=== PATIENT | male | born 1970 | race Caucasian/White ===

== ENCOUNTER 2016-06-20 10:23 | Emergency (ER) | payer BC ==
--- NOTE | 2016-06-20 10:58 | UC ---
Back Pain HPI - HPI Summary HPI Summary: 45 years old male presents complaining of left sided low back pain which radiates to the right lateral side. Located near the costovertebral angle. Pain increased with positional changes and use of the left arm. Intermittent pain is described as dull ache, 5/10 pain. Denies bowel or urinary changes, chest tightness/discomfort, or SOB. - History of Current Complaint Stated Complaint: LOWER BACK PAIN Time Seen by Provider: 06/20/16 10:47 Hx Obtained From: Patient Onset/Duration: Sudden Onset Timing: Intermittent Severity Initially: Moderate Severity Currently: Mild Pain Intensity: 5 Pain Scale Used: 0-10 Numeric Back Pain: Radiates To - Across the back to the rifght lateral side. Character: Dull, Aching Aggravating: Movement, Lifting, Bending, Cough Alleviating: Rest, Position Associated Signs And Symptoms: Positive: Negative. Negative: Swelling, Weakness , Numbness, Tingling, Abdominal Pain, Flank Pain, Bladder Incontinence, Bowel Incontinence Related History: Previous Back Injury - Risk Factors AAA Risk Factors: Primary Relative/AAA, Smoking TAD Risk Factors: Smoking Cauda Equina Risk Factors: Negative Epidural Abscess Risk Factors: Negative - Allergies/Home Medications Allergies/Adverse Reactions: Allergies Allergy/AdvReac Type Severity Reaction Status Date / Time No Known Allergies Allergy Verified 04/15/16 14:36 PMH/Surg Hx/FS Hx/Imm Hx Previously Healthy: Yes Endocrine History Of: Denies: Diabetes, Thyroid Disease, Hyperthyroidism, Hypothyroidism, Dyslipidemia Cardiovascular History Of: Denies: Cardiac Disorders, Hypertension, Pacemaker/ICD, Myocardial Infarction , Congestive Heart Failure, Atrial Fibrillation, Deep Vein Thrombosis, Bleeding Disorders Respiratory History Of: Denies: COPD, Asthma, Bronchitis, Pneumonia, Pulmonary Embolism GI/ History Of: Denies: Gastroesophageal Reflux, Ulcer, Gastrointestinal Bleed, Gall Bladder Disease, Kidney Stones, Diverticulitis, Renal Disease, Urosepsis Neurological History Of: Denies: TIA, CVA, Dementia, Seizures, Migraine Psychological History Of: Denies: Anxiety, Depression, Bipolar Disorder, Schizophrenia, Post Traumatic Stress Disorder - Surgical History Surgical History: Yes Surgery Procedure, Year, and Place: [facility] 1984 - Family History Known Family History: Positive: Hypertension, Diabetes, Other - Oldest brother CAD; AAA - Social History Occupation: Employed Full-time - [employer] Part-time [employer] Lives: With Family Alcohol Use: Occasionally Substance Use Type: None Smoking Status (MU): Current Every Day Smoker Type: Cigarettes Amount Used/How Often: 1 ppd Length of Time of Smoking/Using Tobacco: 25 years Have You Smoked in the Last Year: Yes Cessation Counseling: Patient Advised to Stop - Immunization History Most Recent Influenza Vaccination: Unk Most Recent Tetanus Shot: Unk Review of Systems Constitutional: Negative Skin: Negative Eyes: Negative ENT: Negative Respiratory: Negative Cardiovascular: Negative Gastrointestinal: Negative Genitourinary: Negative Motor: Decreased ROM Neurovascular: Negative Musculoskeletal: Decreased ROM Neurological: Negative Psychological: Negative All Other Systems Reviewed And Are Negative: Yes Physical Exam Triage Information Reviewed: Yes Appearance: No Pain Distress Vital Signs Reviewed: Yes Eye Exam: Normal Eyes: Positive: Conjunctiva Clear ENT Exam: Normal ENT: Positive: Normal ENT inspection Dental Exam: Normal Neck exam: Normal Neck: Positive: Supple, Nontender, No Lymphadenopathy Respiratory Exam: Normal Respiratory: Positive: Chest non-tender, Lungs clear, Normal breath sounds, No respiratory distress, No accessory muscle use Cardiovascular Exam: Normal Cardiovascular: Positive: RRR, No Murmur, Pulses Normal Abdominal Exam: Normal Abdomen Description: Positive: Nontender, No Organomegaly, Distended - obese, Other: - No palpable thrill or bruit auscultated. Negative: Peritoneal Signs, Pulsatile Mass Bowel Sounds: Positive: Present Musculoskeletal Exam: Normal Musculoskeletal: Positive: ROM Limited @ - ROM in the spine limited r/t discomfort Neurological Exam: Normal Neurological: Positive: Alert, Muscle Tone Normal Psychological Exam: Normal Skin Exam: Normal Back Pain Course/Dx - Differential Dx/Diagnosis Provider Diagnoses: Acute low back pain Discharge - Discharge Plan Condition: Stable Disposition: HOME Prescriptions: Cyclobenzaprine TAB* [Flexeril TAB*] 10 mg PO BID #20 tab Naproxen [Naproxen 500 MG TABS] 500 mg PO BID #20 tab Patient Education Materials: Acute Low Back Pain (ED) Referrals: No Primary Care Phys,NOPCP [Primary Care Provider] - If Needed Additional Instructions: As we discussed, seek medical care if experiencing pain radiating down the legs , bowel incontinence, severe constant back pain, Shortness of breath, or chest tightness/discomfort.
[2016-06-20 11:07] VITALS: BP 124/85
== END 2016-06-20 11:57 | disposition home or self-care (01) ==
LOC: UCCORT 10:23
DX: M54.5 Low back pain (principal); F17.210 Nicotine dependence, cigarettes, uncomplicated
CPT/HCPCS: 99212; G0463

== ENCOUNTER 2017-02-28 18:33 | Emergency (ER) | payer BC ==
[2017-02-28 18:50] VITALS: BP 124/77
[2017-02-28] MEDS ORDERED: Lidocaine 2% PF * 5 ML VIAL IV ONE (19:21)
--- NOTE | 2017-02-28 19:51 | UC ---
Skin Complaint HPI - HPI Summary HPI Summary: cyst mid back x 2 months has been getting larger, swollen , tender to touch no fever, - History of Current Complaint Chief Complaint: UCSkin Time Seen by Provider: 02/28/17 19:18 Stated Complaint: SKIN COMPLAINT (BACK) Hx Obtained From: Patient Onset/Duration: Gradual Onset, Lasting Weeks - 8, Still Present, Worse Since - past few days Timing: Constant Onset Severity: Mild Current Severity: Moderate Location: Discrete - mid back Character: Swelling, Pain, Redness, Raised, Painful Aggravating: Touch Alleviating: Nothing Associated Signs & Symptoms: Positive: Negative - Allergy/Home Medications Allergies/Adverse Reactions: Allergies Allergy/AdvReac Type Severity Reaction Status Date / Time No Known Allergies Allergy Verified 02/28/17 18:50 Review of Systems Constitutional: Negative Eyes: Negative ENT: Negative Respiratory: Negative Is Patient Immunocompromised?: No All Other Systems Reviewed And Are Negative: Yes PMH/Surg Hx/FS Hx/Imm Hx - Additional Past Medical History Additional PMH: chronic back pain s/p back surgery - Surgical History Surgical History: Yes Surgery Procedure, Year, and Place: [facility] 1984 - Family History Known Family History: Positive: Hypertension, Diabetes, Other - Oldest brother CAD; AAA - Social History Alcohol Use: Rare Substance Use Type: None Smoking Status (MU): Current Every Day Smoker Type: Cigarettes Amount Used/How Often: 1 ppd Length of Time of Smoking/Using Tobacco: 25 years Have You Smoked in the Last Year: Yes - Immunization History Most Recent Influenza Vaccination: no Most Recent Tetanus Shot: Unk Physical Exam Triage Information Reviewed: Yes Appearance: Well-Appearing, No Pain Distress, Obese Vital Signs: Initial Vital Signs Temp 98.3 F 02/28/17 18:45 Pulse 73 02/28/17 18:45 Resp 15 02/28/17 18:45 BP 124/77 02/28/17 18:45 Pulse Ox 98 02/28/17 18:45 Vital Signs Reviewed: Yes Eyes: Positive: Conjunctiva Clear ENT: Positive: Normal ENT inspection, Hearing grossly normal Neck: Positive: Supple, Nontender, No Lymphadenopathy Respiratory: Positive: Chest non-tender, Lungs clear, Normal breath sounds Cardiovascular: Positive: RRR, No Murmur, Pulses Normal Musculoskeletal Exam: Normal Skin: Positive: Other - cyst mid back 5 cm in diameter Course/Dx - Diagnoses Provider Diagnoses: cyst mid back Procedures - Incision and Drainage Site: mid back Anesthesia: Topical - 2 % lidocane plane x 5 cc Instrument(s): Scalpel - #11 , Needle - 25 g Discharge - Discharge Plan Condition: Stable Disposition: HOME Prescriptions: Cephalexin CAP* [Keflex CAP*] 500 mg PO TID #30 cap Patient Education Materials: Epidermal Inclusion Cysts (ED) Referrals: No Primary Care Phys,NOPCP [Primary Care Provider] - Additional Instructions: follow up with your pcp in 5 days
== END 2017-02-28 19:58 | disposition home or self-care (01) ==
LOC: UCCORT 18:33
DX: L72.3 Sebaceous cyst (principal); E66.9 Obesity, unspecified; F17.210 Nicotine dependence, cigarettes, uncomplicated
CPT/HCPCS: 10060

== ENCOUNTER 2017-03-22 14:16 | Emergency (ER) | payer BC ==
[2017-03-22 15:41] VITALS: BP 125/75
[2017-03-22] MEDS ORDERED: Albuterol/Ipratropium NEB.SOL* Albuterol 2.5 MG/Ipratropium 0.5 MG 3 ML INH ONE (16:16)
--- NOTE | 2017-03-22 16:24 | UC ---
Respiratory Complaint HPI - HPI Summary HPI Summary: 46 male presents to [facility] with complaints of head and chest congestion that has been ongoing for the past week and worsening. Patient states he also did feel feverish this morning. Denies known fever. Admits to smoking cigarettes however denies COPD, asthma and any cardiac medical problems. No PMHx and does not take medications. Does admit to sometimes feeling SOB since symptoms have been worsening. Admits to nasal congestion. Cough is sometimes productive and white in color. Denies blood. Has tried taking over the counter cold/flu medication without relief. Admits to headache at times. No nausea, vomiting. No other complaints at this time. - History of Current Complaint Chief Complaint: UCRespiratory Stated Complaint: HEAD/CHEST CONGESTION Time Seen by Provider: 03/22/17 16:04 Hx Obtained From: Patient Onset/Duration: Sudden Onset, Lasting Weeks - 1, Still Present, Worse Since Timing: Constant Severity Initially: Mild Severity Currently: Moderate Pain Intensity: 0 Pain Scale Used: 0-10 Numeric Character: Cough: Productive Aggravating Factors: Deep Breaths, Recumbent Position Alleviating Factors: Upright Position, Nothing Associated Signs And Symptoms: Positive: URI, Nasal Congestion, Sinus Discomfort. Negative: Hemoptysis, Dizziness, Calf Pain, Calf Swelling - Risk Factors Pulmonary Embolism Risk Factors: Negative Cardiac Risk Factors: Negative Pseudomonas Risk Factors: Negative Tuberculosis Risk Factors: Smoking - Allergies/Home Medications Allergies/Adverse Reactions: Allergies Allergy/AdvReac Type Severity Reaction Status Date / Time No Known Allergies Allergy Verified 03/22/17 15:38 PMH/Surg Hx/FS Hx/Imm Hx - Additional Past Medical History Additional PMH: No PMHx, denies HTN, DM and asthma/COPD - Surgical History Surgical History: Yes Surgery Procedure, Year, and Place: [facility] 1984 - Family History Known Family History: Positive: Hypertension, Diabetes, Other - Oldest brother CAD; AAA - Social History Alcohol Use: Rare Substance Use Type: None Smoking Status (MU): Heavy Every Day Tobacco Smoker Type: Cigarettes Amount Used/How Often: 1 PPD Length of Time of Smoking/Using Tobacco: Since Age 17 Have You Smoked in the Last Year: Yes Household Exposure Type: Cigarettes - Immunization History Most Recent Influenza Vaccination: Not the 2017/2017 Season Most Recent Tetanus Shot: Unk Review of Systems Constitutional: Fever - subjective, Fatigue Eyes: Negative ENT: Nasal Discharge, Sinus Congestion, Sinus Pain/Tenderness Respiratory: Shortness Of Breath, Cough Cardiovascular: Negative Gastrointestinal: Negative Neurological: Headache All Other Systems Reviewed And Are Negative: Yes Physical Exam Triage Information Reviewed: Yes Appearance: Well-Appearing - sounds ill, No Pain Distress, Well-Nourished Vital Signs: Initial Vital Signs Temp 97.9 F 03/22/17 15:36 Pulse 66 03/22/17 15:36 Resp 16 03/22/17 15:36 BP 125/75 03/22/17 15:36 Pulse Ox 99 03/22/17 15:36 Vital Signs Reviewed: Yes Eyes: Positive: Conjunctiva Clear ENT: Positive: Normal ENT inspection, Hearing grossly normal, Pharynx normal, Nasal congestion, TMs normal. Negative: Tonsillar swelling, Tonsillar exudate, Muffled/hoarse voice Dental: Negative: Percussion Tenderness @ Neck: Positive: Supple, Nontender, No Lymphadenopathy Respiratory: Positive: Chest non-tender, Normal breath sounds, No respiratory distress, No accessory muscle use, Rhonchi - b/l, Wheezing - diffuse, Expiration Cardiovascular: Positive: RRR, No Murmur, Pulses Normal, Brisk Capillary Refill Abdominal Exam: Normal Musculoskeletal Exam: Normal Skin Exam: Normal UC Diagnostic Evaluation - Laboratory O2 Sat by Pulse Oximetry: 99 - Radiology Xray Interpretation: Positive (See Comments) - Stigmata of obstructive lung disease. Minimal atelectasis left base, no pneumonia Radiology Interpretation Completed By: Radiologist Re-Evaluation - Re-Evaluation First Eval Re-Evaluation Time: 17:20 Change: Improved - at relief after duoneb. significant improvement of wheezing, however still noted with expiration Respiratory Course/Dx - Course Course Of Treatment: chest xray obtained due to PE findings and to rule out pneumonia, negative. duonbe while in UC had significant relief. appears to be suffering URI/bronchitis. zpack and steroid. inhaler given, no use of nebulizer at home. continue fluids and rest. recommended mucinex and flonase. follow up with pcp. aware of worsening signs and symptoms. return if worse or new. - Differential Dx/Diagnosis Differential Diagnosis/HQI/PQRI: Bronchitis, Lower Resp Infection, Other - URI Provider Diagnoses: bronchitis, URI Discharge - Discharge Plan Condition: Improved Disposition: HOME Patient Education Materials: Albuterol (By breathing), Acute Bronchitis (ED), COPD (Chronic Obstructive Pulmonary Disease) (ED) Referrals: [facility]IC[facility] REFERRAL [Outside] Additional Instructions: Use prescribed medications as directed. Recommend flonase and mucniex over the counter. Increase fluid intake, get plenty of rest. If symptoms worsen or new symptoms develop/do not improve please seek medical attention immediately. Follow up and make an appointment with PCP. Try and quit smoking, as you already are aware of course.
--- NOTE | 2017-03-22 17:02 | RAD ---
INDICATION: Cough intermittently productive, shortness of breath, fever. History of tobacco use. COMPARISON: March 07, 2012 TECHNIQUE: Dual energy PA and routine lateral views of the chest were obtained. REPORT: Elevated lung volumes and mild coarsening of interstitial markings. Mild linear subsegmental atelectasis at the LEFT lung base. No focal pulmonary lesion, pleural effusion, pneumothorax. Negative for cardiomegaly. Unremarkable central pulmonary vasculature and mediastinal contours. Spinal fixation rods. IMPRESSION: Stigmata of obstructive lung disease. Minimal subsegmental atelectasis at the LEFT lung base. No radiographic evidence for pneumonia.
== END 2017-03-22 17:32 | disposition home or self-care (01) ==
LOC: UCCORT 14:16
DX: J40 Bronchitis, not specified as acute or chronic (principal); J06.9 Acute upper respiratory infection, unspecified; F17.210 Nicotine dependence, cigarettes, uncomplicated
CPT/HCPCS: 71020; 99212; A9270-GY; G0463

== ENCOUNTER 2017-11-15 19:01 | Emergency (ER) | payer BC ==
[2017-11-15 20:00] VITALS: BP 136/81
--- NOTE | 2017-11-15 20:04 | UC ---
Eye Complaint HPI - HPI Summary HPI Summary: 46 y/o male presents presents to the urgent care c/o left eye redness w/ green drainage since yesterday. Pt reports this morning he woke upe w/ crusting green eye discharge. Pt denies nasal congestion or URI, fever, SHANKS, photophobia or eye pain, visual disturbance, SOB, chest pain, abdominal pain, N/V/D. - History of Current Complaint Chief Complaint: UCEye Stated Complaint: LEFT EYE REDNESS Time Seen by Provider: 11/15/17 20:03 Hx Obtained From: Patient Onset/Duration: Gradual Onset, Lasting Days - 1 day, Still Present, Worse Since - today Timing: Constant Severity Initially: Mild Severity Currently: Mild Pain Intensity: 0 Pain Scale Used: 0-10 Numeric Location of Injury: Conjunctiva - left w/ green eye discharge Character: Foreign Body Sensation Aggravating Factor(s): Blinking Alleviating Factor(s): Nothing Associated Signs And Symptoms: Positive: Drainage (Purulent) - green. Negative : Photophobia, Vision Impairment Bilateral, Fever, Swelling - Risk Factors Penetrating Injury Risk Factor: Negative Globe Rupture Risk Factors: Negative Acute Glaucoma Risk Factors: Negative Optic Artery Occlusion Risk Factors: Negative - Allergies/Home Medications Allergies/Adverse Reactions: Allergies Allergy/AdvReac Type Severity Reaction Status Date / Time No Known Allergies Allergy Verified 03/22/17 15:38 Home Medications: Home Medications Ibuprofen 600 mg PO Q8H 11/15/17 [History Confirmed 11/15/17] PMH/Surg Hx/FS Hx/Imm Hx Previously Healthy: Yes - Pt denies PMHX - Surgical History Surgical History: Yes Surgery Procedure, Year, and Place: [facility] 1985 [id number]. APPENDECTOMY - Family History Known Family History: Positive: Hypertension, Diabetes Family History: Oldest brother CAD; AAA - Social History Occupation: Employed Full-time Lives: With Family Alcohol Use: Rare Substance Use Type: None Smoking Status (MU): Former Smoker Type: Cigarettes Amount Used/How Often: 1 PPD Length of Time of Smoking/Using Tobacco: Since Age 17 Have You Smoked in the Last Year: Yes When Did the Patient Quit Smoking/Using Tobacco: 06/2017 Household Exposure Type: Cigarettes - Immunization History Most Recent Influenza Vaccination: Not the Season Most Recent Tetanus Shot: Unk Review of Systems Constitutional: Negative Skin: Negative Eyes: Drainage - green, Eye Redness - left ENT: Negative Respiratory: Negative Cardiovascular: Negative Gastrointestinal: Negative Genitourinary: Negative Motor: Negative Neurovascular: Negative Musculoskeletal: Negative Neurological: Negative Psychological: Negative Is Patient Immunocompromised?: No All Other Systems Reviewed And Are Negative: Yes Physical Exam - Summary Physical Exam Summary: Vital Signs Reviewed: Yes General: Well appearing, well nourished obese male in no apparent pain distress Eyes: Positive: left Conjunctiva Inflamed - Visual acuity: WNL,Visual fernandez: full to confrontation PERRLA, EOMI intact w/out limitation or complaint of pain. eyelashes clear.moderate green drainage observed. No ciliary flush. No chemosis, No photophobia. Normal fundoscopic exam; no proptosis, exophthalmos, nystagmus. ENT: Positive: Normal ENT inspection, Hearing grossly normal, Pharynx normal, Nasal congestion, Nasal drainage - clear, TMs normal - B/L external ear canal clear , TM's WNL. Negative: Tonsillar swelling, Tonsillar exudate Neck: Positive: Supple, Nontender, No Lymphadenopathy Respiratory: Positive: Chest nontender, Lungs clear, Normal breath sounds, No respiratory distress Cardiovascular: Positive: RRR, No Murmur, Pulses Normal, Brisk Capillary Refill Abdomen Description: Positive: Nontender, No Organomegaly, Soft. Negative: CVA Tenderness (R), CVA Tenderness (L) Bowel Sounds: Positive: Present Musculoskeletal: Positive: Strength Intact, ROM Intact, No Edema Neurological Exam: Normal Psychological Exam: Normal Skin Exam: Normal Triage Information Reviewed: Yes Vital Signs: Initial Vital Signs Temp 98.8 F 11/15/17 19:55 Pulse 82 11/15/17 19:55 Resp 17 11/15/17 19:55 BP 136/81 11/15/17 19:55 Pulse Ox 98 11/15/17 19:55 Eye Complaint Course/Dx - Course Course Of Treatment: 46 y/o male presents presents to the urgent care c/o left eye redness w/ green drainage since yesterday. Pt reports this morning he woke upe w/ crusting green eye discharge. Pt denies nasal congestion or URI, fever, SHANKS, photophobia or eye pain, visual disturbance, SOB, chest pain, abdominal pain , N/V/D.Hx obtained. Pt w/ acute left bacterial conjunctivitis on examination. Pt Rx Ciprofloxacin ophthalmic drops and advised if symptoms do not improve or worsen to f/u with Quality Assurance Supervisor Final Dr Mehta in 2-3 days. Advised to encourage hand washing. Pt understood and agreed. - Differential Dx/Diagnosis Differential Diagnosis/HQI/PQRI: Conjunctivitis, Keratitis, Periorbital Cellulitis, Orbital Cellulitis, Uveitis Provider Diagnoses: 1- Left acute bacterial conjunctivitis Discharge - Sign-Out/Discharge Documenting (check all that apply): Discharge/Admit/Transfer - D/C home - Discharge Plan Condition: Stable Disposition: HOME Prescriptions: Ciprofloxacin 0.3% OPTH.COLLETTE* [Cipro 0.3% Opth*] 2 drop LEFT EYE Q2H #1 btl Patient Education Materials: Conjunctivitis (ED) Forms: *Work Release Referrals: Nomi Gray MD [Primary Care Provider] - If Needed Michelle Mehta MD [Medical Doctor] - If Needed Additional Instructions: 1-Please apply ophthalmic drops as instructed and finish the full course of treatment to avoid recurrent infection. Encourage hand washing to avoid spreading 2-If you do not improve or if symptoms worsen please f/u with fruit pitter for further evaluation and treatment - Billing Disposition and Condition Condition: STABLE Disposition: Home
== END 2017-11-15 20:26 | disposition home or self-care (01) ==
LOC: UCCORT 19:01
DX: H10.32 Unspecified acute conjunctivitis, left eye (principal); B96.89 Other specified bacterial agents as the cause of diseases classified elsewhere; Z87.891 Personal history of nicotine dependence
CPT/HCPCS: 99212; G0463

== ENCOUNTER 2017-12-31 16:37 | Emergency (ER) | payer BC ==
[2017-12-31 16:51] VITALS: BP 143/84
--- NOTE | 2017-12-31 17:05 | ED ---
Abdominal Pain/Male - HPI Summary HPI Summary: 47 yr old male with the complaint of abdominal pain. Onset of pain Monday associated with diarrhea, and now has soft stools Monday and Monday with burning at the end of bowel movement. he has pain in the low abdomen. He has had associated sweats and chills. No vomiting. He has had an appendectomy. - History of Current Complaint Chief Complaint: UCGeneralIllness Stated Complaint: PERSONAL Time Seen by Provider: 12/31/17 16:52 Pain Intensity: 4 - Allergies/Home Medications Allergies/Adverse Reactions: Allergies Allergy/AdvReac Type Severity Reaction Status Date / Time No Known Allergies Allergy Verified 12/31/17 16:45 Home Medications: Home Medications NK [No Home Medications Reported] 12/31/17 [History Confirmed 12/31/17] PMH/Surg Hx/FS Hx/Imm Hx Endocrine/Hematology History: Denies: Hx Diabetes, Hx Thyroid Disease Cardiovascular History: Denies: Hx Congestive Heart Failure, Hx Deep Vein Thrombosis, Hx Hypertension , Hx Myocardial Infarction, Hx Pacemaker/ICD Respiratory History: Denies: Hx Asthma, Hx Chronic Obstructive Pulmonary Disease (COPD), Hx Pneumonia, Hx Pulmonary Embolism GI History: Denies: Hx Gall Bladder Disease, Hx Gastrointestinal Bleed, Hx Ulcer, Hx Urosepsis History: Denies: Hx Kidney Stones, Hx Renal Disease Neurological History: Denies: Hx Dementia, Hx Migraine, Hx Seizures, Hx Transient Ischemic Attacks (TIA) Psychiatric History: Denies: Hx Anxiety, Hx Depression, Hx Schizophrenia, Hx Bipolar Disorder - Surgical History Surgery Procedure, Year, and Place: [facility] 1984 [id number]. APPENDECTOMY Infectious Disease History: No Infectious Disease History: Denies: Traveled Outside the [place] in Last 30 Days - Family History Known Family History: Positive: Hypertension, Diabetes, Other - Oldest brother CAD; AAA Family History: Oldest brother CAD; AAA - Social History Alcohol Use: Rare Substance Use Type: Reports: None Smoking Status (MU): Former Smoker Type: Cigarettes Amount Used/How Often: 1 PPD Length of Time of Smoking/Using Tobacco: Since Age 17 Have You Smoked in the Last Year: Yes Review of Systems Positive: Fever, Chills Positive: Abdominal Pain, Diarrhea All Other Systems Reviewed And Are Negative: Yes Physical Exam Triage Information Reviewed: Yes Vital Signs On Initial Exam: Initial Vitals Temp Pulse Resp BP Pulse Ox 97.4 F 88 20 143/84 98 12/31/17 16:45 12/31/17 16:45 12/31/17 16:45 12/31/17 16:45 12/31/17 16:45 Vital Signs Reviewed: Yes Appearance: Positive: Well-Appearing, No Pain Distress, Obese Skin: Positive: Warm, Skin Color Reflects Adequate Perfusion Head/Face: Positive: Normal Head/Face Inspection Eyes: Positive: EOMI ENT: Positive: Normal ENT inspection, Pharynx normal Neck: Positive: Nontender Respiratory/Lung Sounds: Positive: Clear to Auscultation, Breath Sounds Present Cardiovascular: Positive: RRR. Negative: Murmur Abdomen Description: Positive: Other: - tender over the Left lower abdomen. Musculoskeletal: Positive: Strength/ROM Intact Neurological: Positive: Sensory/Motor Intact, Alert, Oriented to Person Place, Time, CN Intact II-III Psychiatric: Positive: Normal - [place] Coma Scale Best Eye Response: 4 - Spontaneous Best Motor Response: 6 - Obeys Commands Best Verbal Response: 5 - Oriented Coma Scale Total: 15 Diagnostics - Vital Signs Vital Signs Temp Pulse Resp BP Pulse Ox 12/31/17 16:45 97.4 F 88 20 143/84 98 - Laboratory Lab Statement: Any lab studies that have been ordered have been reviewed, and results considered in the medical decision making process. Abdominal Pain Fem Course/Dx - Course Course Of Treatment: 47 yr old male with tender left lower abdomen. To ER for further work up. - Diagnoses Provider Diagnoses: Abdominal pain, left lower quadrant Discharge - Sign-Out/Discharge Documenting (check all that apply): Patient Departure - Discharge Plan Condition: Good Disposition: HOME-RECOMMEND TO ED Patient Education Materials: Acute Abdominal Pain (ED), Hypertension (ED) Referrals: Sera Riley [Primary Care Provider] - 2 Days Additional Instructions: you should go to the ER immediately upon leaving here for further testing and work up for your abdominal pain. - Billing Disposition and Condition Condition: GOOD Disposition: Home-Recommend to ED
== END 2017-12-31 17:07 | disposition home health service (06) ==
LOC: UCCORT 16:37
DX: R10.32 Left lower quadrant pain (principal); Z87.891 Personal history of nicotine dependence
CPT/HCPCS: 99212; G0463

== ENCOUNTER 2018-07-30 19:32 | Emergency (ER) | payer BC ==
--- OUTSIDE RECORDS SUMMARY | 2018-07-30 19:39 | XMS REPORT | Continuity of Care Document ---
:1970 External Reference #:[id number] Author Name Jas Lobo M.D. Address [address] [facility] [address] [place] [address] Care Team Providers Name Role Phone HCP given Primary Care Physician Unavailable Payers Type Date Identification Numbers Payment Provider Subscriber Policy Number: [id number] [employer]/Ppo/Hmo/Pos Mynor Thomas PayID: [id number] [address] [address] [place] [address] Advance Directives Description No Information Available Problems Description No Information Family History Date Family Member(s) Problem(s) Comments General Alcoholism Father Congestive Heart Failure (CHF) age 48 Mother Lung Disease age 57 Children 4 2 sons, 2 daughters Siblings 4 Social History Type Date Description Comments Sex Unknown Education High School Completed Marital Status Single Diet Unbalanced Diet Calorically Sleep Typically sleeps 6 hours a night Smoke-Free Home is not smoke-free Smoke-Free Work is smoke-free Occupation [employer] Work Status Currently Working Years 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 Tobacco Use Start: Unknown Current Cigarette Smoker 1 Pack Daily Recreational Drug Use Denies Drug Use Tobacco Use Start: Unknown End: Patient is a former smoker Smoking Status Reviewed: 07/10/18 Patient is a former smoker Enjoy Exercising Enjoys exercising Sun Exposure Does not use sunscreen Seat Belt/Car Seat always uses seat belt Guns in Home No Smoke Alarms Yes smoke alarm Currently Active Patient is currently sexually active Condom Use Uses Condoms Age 1st [place] 13 Years Old # Partners in a Lifetime Partners 5-10 Allergies, Adverse Reactions, Alerts Description No Known Drug Allergies Medications Medication Date Status Form Strength Qnty SIG Indications Ordering Provider Proair HFA 07/10/ Active Aerosol 108(90Base 8.500 1-2puffs up J20.9 Silcoff, 2018 ) mcg/Act gm to four Jas, times a day M.D. as needed for breathing Azithromycin 07/10/ Active Tablets 250mg 6tabs 2 tabs day J20.9 Silcoff , 2019 one and 1 Jas, tab days M.D. 2-5 Fluticasone 07/10/ Active Suspension 50mcg/Act 16uni two sprays J06.9 Silcoff, Propionate 2019 ts (50 Jas, mcg/spray) M.D. per nostril once daily (can also try one spray per nostril bid) for head congestion Ventolin HFA 03/22/ Active Aerosol 108(90Base inhale 1 Unknown 2016 ) mcg/Act puffs by mouth every 4 hours as needed Cough & Cold 03/20/ Active Tablets 4-30mg prn Unknown 2016 Diclofenac 05/08/ Hx Gel 1% 100gm apply 2 g M25.532 Silcoguido Sodium 2016 - of gel to Jas 06/07/ affected M.D. 2017 area 4 times daily (maximum: 8 g per joint per day) for wrist pain Sulfamethoxazo 03/27/ Hx Tablets 800-160mg 14tab 1 by mouth L03.319 ana paula Lobo/Trimethopri 2017 - s twice a day sharda Mark 05/07/ for M.D. 2017 infection Prednisone 03/23/ Hx Tablets 20mg 2 by mouth Unknown 2017 - every 03/27/ morning for 2017 5 days Azithromycin 03/22/ Hx Tablets 250mg take 2 Unknown 2016 - tablets by 03/26/ mouth one 2017 time on the first day then take 1 tablet by mouth daily for 4 days Immunizations CPT Code Status Date Vaccine Lot # [id number] Given 03/24/2017 Influenza Virus Vaccine, Quadrivalent, Split, Preservative Free [id number] Given 03/24/2017 Influenza Virus Vaccine, Quadrivalent, Split, [id number] Preservative Free Vital Signs Date Vital Result Comment 07/10/2018 3:46pm BP Systolic 132 mmHg BP Diastolic 86 mmHg Body Temperature 98.4 F Weight 286.00 lb with work boots 05/08/2017 3:35pm BP Systolic 130 mmHg BP Diastolic 80 mmHg Weight 267.00 lb 03/31/2017 1:05pm BP Systolic 122 mmHg BP Diastolic 70 mmHg Weight 267.00 lb 03/27/2017 1:44pm BP Systolic 120 mmHg BP Diastolic 80 mmHg Body Temperature 97.8 F 03/24/2017 12:51pm BP Systolic 132 mmHg BP Diastolic 85 mmHg Body Temperature 98.4 F Height 72.5 inches 6'0.50" with work boots Weight 268.00 lb with work boots BMI (Body Mass Index) 35.8 kg/m2 Results Description No Information Available Procedures Date Code Description Status 04/09/2018 57671091 Colonoscopy Completed 05/08/2017 99105 X-Ray Wrist Three Views Completed Encounters Type Date Location Provider Dx Diagnosis Office Visit 07/10/2018 Main Office Nubia Cloud J20.9 Acute bronchitis, 3:40p P.A. unspecified J06.9 Acute upper respiratory infection, unspecified Office Visit 05/08/2017 3:20p Main Office Nubia Cloud, M25.532 Pain in left P.A. wrist S63.592A Other specified sprain of left wrist, initial encounter X50.0xxA Overexertion from strenuous movement or load, init Office Visit 03/31/2017 1:00p Main Office Nubia Cloud J20.9 Acute bronchitis, P.A. unspecified L03.319 Cellulitis of trunk, unspecified Office Visit 03/27/2017 1:40p Main Office James Barron0.9 Acute bronchitis, P.A. unspecified L03.319 Cellulitis of trunk, unspecified Office Visit 03/24/2017 1:00p Main Office James Barron0.9 Acute bronchitis, P.A. unspecified L03.319 Cellulitis of trunk, unspecified Z23 Encounter for immunization Plan of Treatment 03/24/2017 - Lynne BarronJ20.9 Acute bronchitis, pktvjeixladY95.319 Cellulitis of trunk, unspecifiedFollow up:Monday, keep covered, call [facility] after hours phone line if any [id number] Encounter for immunizationComments:Counseling done regarding risks and benefits of flu vaccine, previous vaccine reactions and possiblecontraindications to vaccine discussed, and pt's questions answered. Pt agreed to vaccination. VISsheets given.
[2018-07-30 21:10] VITALS: BP 134/80
--- NOTE | 2018-07-30 21:49 | UC ---
Shoulder Pain HPI - HPI Summary HPI Summary: 47-year-old male comes to clinic with a chief complaint of right shoulder pain. Pain occurred when he slipped and fell on the ice and landed on his right elbow. Initially most the pain was in the shoulder however now he feels like the worst area the pain is in the proximal humerus. Denies any injury to the fingers and wrist. The otherwise some pain but it's not very bad. Denies any chest pain or shortness of breath. No complaint of any head injury or neck pain. He did have some temporary numbness into the hand but is not having that now. The pain is worse with any attempted movement. It is less when he lets his arm hang down. - History of Current Complaint Chief Complaint: UCUpperExtremity Stated Complaint: S/P FALL-RIGHT SHOULDER INJURY Time Seen by Provider: 07/30/18 21:38 Pain Intensity: 7 - Allergies/Home Medications Allergies/Adverse Reactions: Allergies Allergy/AdvReac Type Severity Reaction Status Date / Time No Known Allergies Allergy Verified 07/30/18 21:10 PMH/Surg Hx/FS Hx/Imm Hx Previously Healthy: Yes - Surgical History Surgical History: Yes Surgery Procedure, Year, and Place: Tinsley rods 1985 Y68-ul[facility]. APPENDECTOMY - Family History Known Family History: Positive: Hypertension, Diabetes, Other - Oldest brother CAD; AAA Family History: Oldest brother CAD; AAA - Social History Alcohol Use: Occasionally Substance Use Type: None Smoking Status (MU): Former Smoker Type: Cigarettes Amount Used/How Often: 1 PPD Length of Time of Smoking/Using Tobacco: Since Age 17 Have You Smoked in the Last Year: Yes When Did the Patient Quit Smoking/Using Tobacco: 06/2017 Household Exposure Type: Cigarettes - Immunization History Most Recent Influenza Vaccination: Not the 2016/2017 Season Most Recent Tetanus Shot: Unk Review of Systems All Other Systems Reviewed And Are Negative: Yes Constitutional: Positive: Negative Skin: Positive: Negative Eyes: Positive: Negative ENT: Positive: Negative Respiratory: Positive: Negative Cardiovascular: Positive: Negative Gastrointestinal: Positive: Negative Motor: Positive: Decreased ROM Neurovascular: Positive: Negative Musculoskeletal: Positive: Other: - SEE HPI Neurological: Positive: Other - SEE HPI Psychological: Positive: Negative Is Patient Immunocompromised?: No Physical Exam Triage Information Reviewed: Yes Appearance: Well-Appearing, Well-Nourished, Pain Distress - mild with attempted rom of lt shoulder Vital Signs: Initial Vital Signs Temp 98.4 F 07/30/18 21:07 Pulse 81 07/30/18 21:07 Resp 17 07/30/18 21:07 BP 134/80 07/30/18 21:07 Pulse Ox 98 07/30/18 21:07 Vital Signs Reviewed: Yes Eye Exam: Normal Eyes: Positive: Conjunctiva Clear Neck exam: Normal Neck: Positive: Supple, Nontender Respiratory: Positive: Chest non-tender, Lungs clear, Normal breath sounds, No respiratory distress Cardiovascular: Positive: RRR Musculoskeletal: Positive: Other: - Normal radial pulses bilaterally. Normal capillary refill in the upper extremities. No sensation deficit in the upper extremities. Fingers wrist elbows have full range of motion full-strength. Left shoulder has full range of motion full-strength. Right shoulder is tender in the proximal humerus. Clavicle itself is nontender to palpation. Patient has limited range of motion secondary to pain in the right shoulder. Neurological Exam: Normal Neurological: Positive: Alert, Muscle Tone Normal Psychological Exam: Normal Psychological: Positive: Age Appropriate Behavior Skin Exam: Normal Shoulder Course/Dx - Course Course Of Treatment: I discussed the x-rays with the patient. I do not see any fractures. Radiologist reading is pending. The plan is ice and anti- inflammatories. Benadryl was sling for now for comfort but I discussed with him the need for range of motion exercises of the shoulder to avoid frozen shoulder. I demonstrated for him. Plan is for him to follow-up with orthopedics. - Differential Dx/Diagnosis Provider Diagnosis: Right shoulder pain Discharge - Sign-Out/Discharge Documenting (check all that apply): Patient Departure All imaging exams completed and their final reports reviewed: No - Discharge Plan Condition: Stable Disposition: HOME Patient Education Materials: Shoulder Pain (ED) Forms: *Work Release Referrals: Sera Riley [Primary Care Provider] - Blayne Chauhan MD [Medical Doctor] - Additional Instructions: FOLLOW UP WITH DR CHAUHAN, ORTHOPEDICS. TAKE YOUR ARM OUT OF THE SLING MULTIPLE TIMES A DAY AND DO THE RANGE OF MOTION EXERCISES TO HELP AVOID A FROZEN SHOULDER. GET RECHECKED FOR ANY WORSENING OF YOUR CONDITION OR QUESTIONS OR CONCERNS. - Billing Disposition and Condition Condition: STABLE Disposition: Home
--- NOTE | 2018-07-31 08:02 | UC ---
- Progress Note Progress Note: right Humerus and right shoulder xray : IMPRESSION: 1. HILL-SACHS LESION OF THE HUMERAL HEAD, SUGGESTIVE OF THE SEQUELA OF PREVIOUS DISLOCATION. 2. OSTEOARTHRITIS. 3. NONAGGRESSIVE LUCENT LESION OF THE DISTAL HUMERUS. THIS MAY BE AN ARTIFACT OF THE APPEARANCE OF THE CORONOID FOSSA OF THE HUMERUS. RECOMMEND CORRELATION WITH DEDICATED IMAGING OF THE ELBOW IN THE NONACUTE SETTING. 4. NO ACUTE OSSEOUS INJURY. IF SYMPTOMS PERSIST, RECOMMEND REPEAT IMAGING Course/Dx - Diagnoses Provider Diagnoses: Right shoulder pain Discharge - Sign-Out/Discharge Documenting (check all that apply): Patient Departure All imaging exams completed and their final reports reviewed: Yes - Discharge Plan Condition: Stable Disposition: HOME Patient Education Materials: Shoulder Pain (ED) Forms: *Work Release Referrals: Blayne Chauhan MD [Medical Doctor] - Sera Riley [Primary Care Provider] - Additional Instructions: FOLLOW UP WITH DR CHAUHAN, ORTHOPEDICS. TAKE YOUR ARM OUT OF THE SLING MULTIPLE TIMES A DAY AND DO THE RANGE OF MOTION EXERCISES TO HELP AVOID A FROZEN SHOULDER. GET RECHECKED FOR ANY WORSENING OF YOUR CONDITION OR QUESTIONS OR CONCERNS. - Billing Disposition and Condition Condition: STABLE Disposition: Home
== END 2018-07-30 22:45 | disposition home or self-care (01) ==
LOC: UCCORT 19:32
DX: M25.511 Pain in right shoulder (principal); Z87.891 Personal history of nicotine dependence
CPT/HCPCS: 99212; G0463

== ENCOUNTER 2018-09-03 09:36 | Day surgery (SDC) | payer BC ==
[~2018-09-03 09:36] MED LIST: Acetaminophen TAB* 325 MG ONE; Acetaminophen TAB* 325 MG PO ONE; Buffered Lidocaine 1% SYRIN* 1 ML/SYRINGE INTRADERM ONE; Dexamethasone IV* 4 MG/ML 1 ML (4 MG) IV SLOW PU ONE; Dexamethasone IV* 4 MG/ML 1 ML (4 MG) ONE; Famotidine TAB* 20 MG ONE; Famotidine TAB* 20 MG PO ONE; Gabapentin CAP(*) 300 MG ONE; Gabapentin CAP(*) 300 MG PO ONE; Lactated Ringers 1000 ML Bag* 1,000 ML IV SCH; celeCOXIB CAP* 100 MG ONE; celeCOXIB CAP* 200 MG PO ONE
[2018-09-03] MEDS ORDERED: fentaNYL* 50 MCG/ML 2 ML VIAL (100 MCG VIAL) ONE ×2 (09:41→13:22)
[2018-09-03] MEDS ORDERED: Midazolam* 1 MG/ML 2 ML VIAL (2 MG) ONE (09:41)
[2018-09-03] MEDS ORDERED: Propofol* 10 MG/ML 20 ML BTL ONE ×2 (09:41→13:24)
[2018-09-03] MEDS ORDERED: Rocuronium* 10 MG/ML VIAL ONE (09:43)
[2018-09-03] MEDS ORDERED: ceFAZolin 2 GM in NS PREMIX(*) 2 GM/100 ML BAG IVPB ONE (10:12)
[2018-09-03] MEDS ORDERED: ceFAZolin VIAL(*) VIAL ONE (10:12)
[2018-09-03] MEDS ORDERED: Bupivacaine 0.25% SDV* 30 ML ONE (10:36)
[2018-09-03] MEDS ORDERED: ROPIVACAINE 5 MG/ML 30 ML BTL (0.5%) ONE (11:06)
[2018-09-03] MEDS ORDERED: Lidocaine 1%* 5 ML VIAL ONE (11:07)
[2018-09-03] MEDS ORDERED: Naloxone* 0.4 MG/ML 1 ML VIAL IV PRN (12:46)
[2018-09-03] MEDS ORDERED: Acetaminophen TAB* 325 MG PO PRN (12:46)
[2018-09-03] MEDS ORDERED: oxyCODONE/Acetamin 5/325 MG* TAB PO PRN (12:46)
[2018-09-03] MEDS ORDERED: fentaNYL* 50 MCG/ML 2 ML VIAL (100 MCG VIAL) IV PRN (12:46)
[2018-09-03] MEDS ORDERED: Ketorolac INJ* 30 MG/ML 1 ML VIAL IV PRN (12:46)
[2018-09-03] MEDS ORDERED: PROCHLORPERAZINE INJ 5 MG/ML 2 ML VIAL IV PRN (12:46)
[2018-09-03] MEDS ORDERED: DiMENhydriNATE IV* 50 MG/ML VIAL IV PUSH PRN (12:46)
[2018-09-03] MEDS ORDERED: Desflurane* 240 ML INH ONE (14:22)
[2018-09-03] MEDS ORDERED: Ondansetron INJ* 2 MG/ML VIAL ONE (14:58)
[2018-09-03] MEDS ORDERED: Succinylcholine* 20 MG/ML 10 ML VIAL ONE (15:04)
[2018-09-03] MEDS ORDERED: Metoprolol Tartrate IV* 1 MG/ML 5 ML VIAL IV ONE (17:06)
[2018-09-03] MEDS ORDERED: Metoprolol Tartrate IV* 1 MG/ML 5 ML VIAL ONE (17:07)
[2018-09-03 18:42] VITALS: BP 135/76
--- NOTE | 2018-09-04 01:27 | OP ---
DATE OF OPERATION: 09/03/18 - [facility] DATE OF : 68 SURGEON: Henny Saba MD. OLERICULTURIST: WILLIAM Barton. ANESTHESIOLOGIST: Dr. Loyola. ANESTHESIA: General, interscalene block. PRE-OP DIAGNOSES: Right shoulder full-thickness tear of the supra and infraspinatus tendons as well as bicipital tendonitis. POST-OP DIAGNOSES: Rotator cuff repair of the supra and infraspinatus tendons as well as subscapularis for a massive tear and bicipital tendonitis. OPERATIVE PROCEDURE: Right shoulder arthroscopy with: 1. Extensive glenohumeral debridement. 2. Decompression and acromioplasty. 3. Rotator cuff repair of the supra and infraspinatus tendons as well as subscap tendon in a double row fashion 4. Open biceps tendinosis. Please add #22 modifier for the level of complexity due to the patient's size and complexity of this large tear. The whole surgical time took 3 hours to do, which is longer than normal. IMPLANTS USED: Four Helicoils, 2 Multifixes and 1 Q-Fix. INDICATIONS: Mynor Thomas is a 47-year-old male who slipped on ice on 07/30/18 and landed on his shoulder. He was diagnosed with a full-thickness tear of the rotator cuff. After extensive discussion of the risks and benefits of surgery, he has elected to proceed with surgical treatment. Risks included but are not limited to bleeding, infection, damage to nerves; vessels; surrounding structures, wound nonhealing, persistent pain, need for further surgery, scarring, stiffness, incomplete relief of symptoms and risk of anesthesia. DESCRIPTION OF PROCEDURE: The patient was greeted in the preoperative area by the attending surgeon. The correct extremity was marked and consent was confirmed. The patient underwent interscalene nerve block by the anesthesiologist, after which he was brought to the operating suite where he was placed in the supine position on the operating table, then underwent general anesthesia and endotracheal intubation, after which he was placed in the left lateral decubitus position. He was secured with a pegboard and all bony prominences were padded. The right arm was draped unsterilely with 10 pounds of traction. Right shoulder was then prepped and draped in the usual sterile fashion beginning with chlorhexidine soap, scrub, and alcohol wipe, and a final prep with ChloraPrep. After appropriate surgical pause indicating side, site, procedure, and administration of antibiotics, the standard postero-lateral portal was made sharply with #11 blade. The scope was introduced through the joint. The joint was examined. There were grade 1 changes and a small area of grade 2 changes at the glenoid. The anterior, posterior and superior labrum had unstable fraying. The biceps had fraying, but also had synovitis and damage to the alexandre. The inferior recess was intact. There was evidence of full-thickness tear involving the supra and infraspinatus tendons that was evident. The subscap appeared to have the proximal third torn as well. The anterior portal was made in an outside fashion. Shaver was used to debride back the anterior, posterior and superior labrum because the biceps alexandre was injured and the biceps was then tenotomized for later tenodesis. After debridement was completed, attention was directed to the subacromial space. The scope was positioned in the subacromial space. The lateral portal was made in an outside-in fashion. Shaver was used to debride out the abundant thick bursa that was present. There was vacuum where the cuff was. This was then debrided back and the cuff was visualized. There appeared to be a very large tear, and after a significant amount of time trying to release the adhesions, it was found to be a large L-shaped tear. The subscap, again, was torn at the proximal portion where it complexes over the biceps tendon. The undersurface of the acromion was then skeletonized using electrocautery device and a 4-0 oval lawanda was used to do an acromioplasty. Attention was then directed to the rotator cuff repair. First, the greater tuberosity was repaired in the usual fashion with the electrocautery device with the rasp as well as the 4-0 oval lawanda to gently decorticate. Then, first beginning with subscap repair, one Q-Fix anchor was placed very anteriorly and the suture was passed through the subscap in a horizontal mattress configuration to secure the proximal third. Sutures were then tied down. Attention was then directed to the remainder of the tear, which was carefully mobilized. This was very difficult to bring back to the footprint and required a significant amount of time to release adhesions. After provisional anchor placement, 2 sutures were then passed through the tendon. These were then tied down in a horizontal mattress configuration, but I did not feel that the repair was acceptable; therefore, I cut those sutures out and put in 3 anchors in a more favorable position. I put a traction stitch through the supraspinatus tendon and held traction on this to try to help approximate to the footprint. This required repetitive periods of releasing the adhesions to mobilize this massive tear. Eventually, once tension was obtained, the sutures were then passed beginning with an anterior anchor in a horizontal mattress configuration all the way to the extent of the infraspinatus tendon, of which a large portion of it had been torn off as well. Gentle microfracture was also done at the greater tuberosity to allow for a bony bleeding bed. The sutures were tied down and then one strand of each of these sutures was passed through a Multifix anchor first anterolaterally and then second, the remainder of the strands were passed posterolaterally as well for double row fixation. The cuff was appropriately approximated. The interval had been damaged, but the head was appropriately covered. The subscap was repaired. After this was completed, attention was directed to the biceps. With the bed airplaned to the right side, the anterior aspect of the shoulder was prepped again using ChloraPrep. A 15-blade was used to make an incision along the biceps tendon. The soft tissues were carefully dissected to expose the biceps. The patient was very waterlogged and it took time, but the biceps was identified and then a Q-Fix was deployed. The groove was then prepared in the usual fashion. The suture was passed through the tendon in a Srini-Shailesh type configuration and then tied down. Final images were obtained. The wounds were copiously irrigated with sterile saline. The portals were closed with 3-0 Monocryl and 3-0 nylon. Sterile dressings were applied as well as a Cryo/Cuff and UltraSling. He was awoken from anesthesia and transferred to PACU in stable condition. DISCHARGE POSTOPERATIVE PLAN: He will be nonweightbearing. He will be in the sling for 6 weeks. He will be discharged with pain medication. DVT prophylaxis was considered, but deferred due to no previous personal or family history. I will see the patient back in 10 to 14 days. [id number]/[facility] #: [id number] [facility] CENTERCaitlin
--- NOTE | 2018-09-04 16:50 | PN ---
Progress Note - Progress Note Date of Service: 09/04/18 Note: Anesthesiology Follow-up: Called pt to follow-up after shoulder arthroscopic procedure on 09/03/18. In PACU pt c/o of foreign object in Right eye and uncontrolled tearing. Right eye was flushed with artificial tears in PACU and examined under light. Discharged patient from PACU and followed up with patient today with phone call. Pt states right eye is much better and denies any visual disturbances. No longer has sense of foreign object in eye. Pt also c/o of swelling in left ear yesterday which he states has gone away. Reassured pt that this may be due from positioning in the left lateral position. Assured pt that his ear was free of pressure and may have been secondary to fluid shifts during the long procedure. Pt states to be doing very well today and advised pt to please call our office to speak with me if he has any further questions about his anesthetic care. Didier Loyola MD
== END 2018-09-03 19:59 | disposition home or self-care (01) ==
LOC: OREAST 09:36
PROVIDERS: ATTEND Orthopaedic Surgery
DX: S46.011A Strain of muscle(s) and tendon(s) of the rotator cuff of right shoulder, initial encounter (principal); M75.21 Bicipital tendinitis, right shoulder; W00.0XXA Fall on same level due to ice and snow, initial encounter; Y92.89 Other specified places as the place of occurrence of the external cause; Z87.891 Personal history of nicotine dependence; G89.18 Other acute postprocedural pain
CPT/HCPCS: 88304; A9270-GY; C1713; C1776; J0330; J0690; J1100; J2250; J2405; J2704; J2795; J3010; J3490

== ENCOUNTER 2018-10-07 16:48 | Emergency (ER) | payer BC ==
--- OUTSIDE RECORDS SUMMARY | 2018-10-07 16:58 | XMS REPORT | Continuity of Care Document ---
:1970 External Reference #:[id number] Author Name Gemma Zaragoza Care Team Providers Name Role Phone Sera Riley PA Primary Care Physician Unavailable Payers Date Identification Numbers Payment Provider Subscriber Policy Number: [id number] BS Facets Mynor Thomas PayID: [id number] [address] [address] [place] [address] Advance Directives Description No Information Available Problems Date Description Provider Status Onset: 08/17/2018 Full thickness rotator cuff tear Henny Saba MD Active Family History Date Family Member(s) Observation Comments General Diabetes Father Chronic Obstructive Pulmonary Disease (COPD) Mother Diabetes Social History Type Date Description Comments Sex Unknown Marital Status Single Lives With Alone Occupation Not Currently Working Work for [employer] ETOH Use Occasionally consumes alcohol Recreational Drug Use Denies Drug Use Tobacco Use Start: Unknown End: Patient is a former Unknown smoker Smoking Status Reviewed: 09/24/18 Patient is a former smoker Exercise Type/Frequency Exercises sporadically Allergies, Adverse Reactions, Alerts Description No Known Drug Allergies Medications Medication Date Status Form Strength Qnty SIG Indications Ordering Provider Ibuprofen 200 00/00/0 Active Tablets 200mg 400-600mg Unknown 000 every 6 hours as needed for pain. Oxycodone-Aceta Hx Tablets 5-325mg 30tabs 1 tabs by Henny minophen 019 - mouth MD Jayant every 4-6 019 hours as needed for pain Aspirin Hx Tablets 325mg 14tabs take 1 Henny 019 - tab twice MD Jayant a day x 7 019 days post op No Active Hx Unknown Medications 019 - 019 Immunizations Description No Information Available Vital Signs Date Vital Result Comment 09/24/2018 10:28am Height 73 inches 6'1" Weight 275.00 lb BP Systolic 124 mmHg BP Diastolic 94 mmHg Respiratory Rate 16 /min Body Temperature 97.9 F Pain Level 3 BMI (Body Mass Index) 36.3 kg/m2 09/13/2018 11:36am Height 73 inches 6'1" Weight 273.00 lb BP Systolic 134 mmHg BP Diastolic 84 mmHg Respiratory Rate 18 /min Body Temperature 97.1 F Pain Level 18 BMI (Body Mass Index) 36.0 kg/m2 08/17/2018 8:00am Height 73 inches 6'1" Weight 273.00 lb BP Systolic 134 mmHg BP Diastolic 86 mmHg Respiratory Rate 18 /min Pain Level 3 BMI (Body Mass Index) 36.0 kg/m2 08/08/2018 11:30am Height 73 inches 6'1" Weight 273.00 lb BP Systolic Sitting 126 mmHg BP Diastolic Sitting 74 mmHg Respiratory Rate 16 /min Pain Level 2 BMI (Body Mass Index) 36.0 kg/m2 08/03/2018 10:31am Height 73 inches 6'1" Weight 273.00 lb BP Systolic Sitting 124 mmHg BP Diastolic Sitting 74 mmHg Respiratory Rate 16 /min Pain Level 3 BMI (Body Mass Index) 36.0 kg/m2 Results Test Date Facility Test Result H/L Range Note Laboratory test 09/03/2018 [facility] Surgical SEE RESULT 1 , [address] [place] [address] [phone] [id number] 2 SEE RESULT BELOW Name: MYNOR THOMAS : [address]: Henny Saba MD Acct: [id number] Unit: [id number] AGE: 47 Location: [facility] Re09/03/18 SEX: M Status: DEP [facility] SPEC: [id number] ROSALVA: 09/03/181225 [facility] DR: Henny Saba MD REQ: [id number] RECD: 09/03/18 STATUS: SOUT _ ORDERED: LEVEL 3 COMMENTS: [id number] FINAL DIAGNOSIS Shoulder, right, arthroscopic shavings: -- Benign synovial tissue fragments. PRE-OPERATIVE DIAGNOSIS Right shoulder rotator cuff tear GROSS DESCRIPTION The specimen is received in formalin labeled, Right Shoulder Shavings, and consists of a 2.1 x 1.5 x 0.3 cm aggregate of solis-white to pink irregular rubbery soft tissue fragments. Surgical Appliances Salesperson sections, one cassette. Signed by and Reported on: Mayda Moody MD 09/05/18 1021 END OF REPORT DEPARTMENT OF PATHOLOGY, [address] [place] [address] Gordon Vega M.D. Director [facility] # [id number] Procedures Date Code Description Status 09/03/2018 81519 Arthroscopy Shoulder,W/Rotator Cuff Repair Completed 09/03/2018 08657 Arthroscopy Shoulder,W/Rotator Cuff Repair Completed 09/03/2018 12631 Arthroscopy,Shoulder Decompression Of Subacromial Space Completed W/Acromio 09/03/2018 99064 Arthroscopy,Shoulder Decompression Of Subacromial Space Completed W/Acromio 09/03/2018 61139 Arthroscopy Shoulder Debridement Extensive Completed 09/03/2018 98289 Arthroscopy Shoulder Debridement Extensive Completed 09/03/2018 22476 Tenodesis Biceps Long Tendon Completed 09/03/2018 33813 Tenodesis Biceps Long Tendon Completed Encounters Type Date Location Provider Dx Diagnosis Office Visit 08/17/2018 Orthopedic Henny Saba MD S46.011A [facility] 8[facility] musc/tend the rotator cuff of right shoulder, init W00.9xxA Unspecified fall due to ice and snow, initial encounter Office Visit 08/08/2018 11:30a Orthopedic Blayne Blake M75.121 [facility] MD rotatr-cuff AT [place] tear/ruptr of r shoulder, not trauma Office Visit 08/03/2018 10:15a Orthopedic Blayne Blake S49.81xA Oth injuries of [facility] MD right shoulder AT [place] and upper arm, init encntr M25.311 Other instability, right shoulder Plan of Treatment Future Appointment(s):10/16/2018 11:30 am - Henny Saba MD at [facility]09/24/2018 - Luke Hewitt M.D.S46.011D Strain of muscle(s) and tendon(s) of the rotator cuff of rigFollow up:Follow up: Dr. Saba October 16 and as needed Keep track of the reddness and if increasing pain or fever then call again Keep all clean with soap and water, and OK to use skin creams as desires
[2018-10-07 17:18] VITALS: BP 144/91
[2018-10-07] MEDS ORDERED: DOXYcycline CAP(*) 100 MG PO ONE (17:24)
--- NOTE | 2018-10-07 17:24 | UC ---
Skin Complaint HPI - HPI Summary HPI Summary: Pt presents with c/o tick bite and still attached to left side of anterior scrotum. Pt had rotator cuff surgery recently and is in sling. Pt unsure of how long tick has been attached. - History of Current Complaint Chief Complaint: UCSkin Time Seen by Provider: 10/07/18 17:12 Stated Complaint: TICK Hx Obtained From: Patient Onset/Duration: Sudden Onset Skin Exposure Onset/Duration: Days Ago Timing: Constant Onset Severity: Mild Current Severity: Mild Pain Intensity: 0 Location: Discrete Character: Painful Aggravating Factor(s): Touch Alleviating Factor(s): Nothing Associated Signs & Symptoms: Positive: Tenderness Related History: Insect Bite/Sting - Allergy/Home Medications Allergies/Adverse Reactions: Allergies Allergy/AdvReac Type Severity Reaction Status Date / Time No Known Allergies Allergy Verified 10/07/18 17:18 PMH/Surg Hx/FS Hx/Imm Hx Previously Healthy: Yes - Surgical History Surgical History: Yes Surgery Procedure, Year, and Place: [place] [address] [id number]/PELVIS,. R rotator cuff. APPENDECTOMY, [facility] - Family History Known Family History: Positive: Hypertension, Diabetes, Other - Oldest brother CAD; AAA Family History: Oldest brother CAD; AAA - Social History Occupation: Employed Full-time Lives: With Family Alcohol Use: Occasionally Alcohol Amount: socailly Substance Use Type: None Smoking Status (MU): Former Smoker Type: Cigarettes Amount Used/How Often: 1 PPD for 30 yrs Length of Time of Smoking/Using Tobacco: Since Age 17 Have You Smoked in the Last Year: No When Did the Patient Quit Smoking/Using Tobacco: 06/2016 Household Exposure Type: Cigarettes - Immunization History Most Recent Influenza Vaccination: Not the 2016/2017 Season Most Recent Tetanus Shot: Unk Review of Systems All Other Systems Reviewed And Are Negative: Yes Constitutional: Positive: Negative Skin: Positive: Other - tick bite Eyes: Positive: Negative ENT: Positive: Negative Respiratory: Positive: Negative Cardiovascular: Positive: Negative Gastrointestinal: Positive: Negative Genitourinary: Positive: Negative, Other - tick attached to scrotum left side Motor: Positive: Negative Neurovascular: Positive: Negative Musculoskeletal: Positive: Negative Neurological: Positive: Negative Psychological: Positive: Negative Is Patient Immunocompromised?: No Physical Exam Triage Information Reviewed: Yes Appearance: Well-Appearing Vital Signs: Initial Vital Signs Temp 98.3 F 10/07/18 17:10 Pulse 104 10/07/18 17:10 Resp 16 10/07/18 17:10 BP 144/91 10/07/18 17:10 Pulse Ox 96 10/07/18 17:10 Vital Signs Reviewed: Yes Eye Exam: Normal ENT: Positive: Hearing grossly normal Dental Exam: Normal Neck exam: Normal Respiratory Exam: Normal Male Genital Exam: Positive: Other - tick alive and attached to anterior left side of scrotum Musculoskeletal Exam: Normal, Other - right shoulder/arm in sling. NO movement Neurological Exam: Normal Psychological Exam: Normal Skin Exam: Normal Course/Dx - Differential Diagnoses - Skin Complaint Differential Diagnoses: Tick Born Illness - Diagnoses Provider Diagnosis: Tick bite with subsequent removal of tick Discharge - Sign-Out/Discharge Documenting (check all that apply): Patient Departure All imaging exams completed and their final reports reviewed: No Studies - Discharge Plan Condition: Stable Disposition: HOME Patient Education Materials: Tick Bite (ED) Referrals: Sera Riley [Primary Care Provider] - If Needed - Billing Disposition and Condition Condition: STABLE Disposition: Home
== END 2018-10-07 17:31 | disposition home or self-care (01) ==
LOC: UCCORT 16:48
DX: S30.863A Insect bite (nonvenomous) of scrotum and testes, initial encounter (principal); Z87.891 Personal history of nicotine dependence; W57.XXXA Bitten or stung by nonvenomous insect and other nonvenomous arthropods, initial encounter; Y92.9 Unspecified place or not applicable
CPT/HCPCS: 99212; A9270-GY; G0463

== ENCOUNTER 2018-10-27 15:50 | Emergency (ER) | payer BC ==
--- OUTSIDE RECORDS SUMMARY | 2018-10-27 16:00 | XMS REPORT | Continuity of Care Document ---
:1970 External Reference #:[id number] Author Name Gemma Zaragoza Care Team Providers Name Role Phone Sera Riley PA Primary Care Physician Unavailable Payers Date Identification Numbers Payment Provider Subscriber Policy Number: [id number] BS Facets Mynor Thomas PayID: [id number] [address] [address] [place] [address] Advance Directives Description No Information Available Problems Active Problems Provider Date Full thickness rotator cuff tear Henny Saba MD Onset: 08/17/2018 Family History Date Family Member(s) Observation Comments General Diabetes Father Chronic Obstructive Pulmonary Disease (COPD) Mother Diabetes Social History Type Date Description Comments Sex Unknown Marital Status Single Lives With Alone Occupation Not Currently Working Work for [employer] ETOH Use Occasionally consumes alcohol Recreational Drug Use Denies Drug Use Tobacco Use Start: Unknown End: Patient is a former Unknown smoker Smoking Status Reviewed: 10/16/18 Patient is a former smoker Exercise Type/Frequency Exercises sporadically Allergies, Adverse Reactions, Alerts Description No Known Drug Allergies Medications Active Medications SIG Qnty Indications Ordering Provider Date Ibuprofen 200 400-600mg every 6 Unknown 200mg hours as needed Tablets for pain. History Medications Oxycodone-Acetaminophen 1 tabs by 30tabs Henny Saba, 09/03/2018 - 5-325mg Tablets mouth every MD 09/23/2018 4-6 hours as needed for pain Aspirin take 1 tab 14tabs Henny Saba, 09/03/2018 - 325mg Tablets twice a day x MD 09/23/2018 7 days post op No Active Medications Unknown 08/03/2018 - 09/03/2018 Immunizations Description No Information Available Vital Signs Date Vital Result Comment 10/16/2018 11:39am Height 73 inches 6'1" Weight 276.00 lb Heart Rate 87 /min BP Systolic 140 mmHg BP Diastolic 82 mmHg Body Temperature 97.8 F Pain Level 4 BMI (Body Mass Index) 36.4 kg/m2 09/24/2018 10:28am Height 73 inches 6'1" Weight [...] Result H/L Range Note Laboratory test 09/03/2018 [facility] Surgical SEE RESULT 1 , [address] [place] [address] [phone] [id number] 2 SEE RESULT BELOW Name: MYNOR THOMAS : [address]: Henny Saba MD Acct: [id number] Unit: [id number] AGE: 47 Location: [facility] Re09/03/18 SEX: M Status: DEP SDC SPEC: [id number] ROSALVA: 09/03/18-12[address] [facility] [address]: Henny Saba MD REQ: [id number] RECD: 09/03/18 STATUS: SOUT _ ORDERED: LEVEL 3 COMMENTS: [id number] FINAL DIAGNOSIS Shoulder, right, arthroscopic shavings: -- Benign synovial tissue fragments. PRE-OPERATIVE DIAGNOSIS Right shoulder rotator cuff tear GROSS DESCRIPTION The specimen is received in formalin labeled, Right Shoulder Shavings, and consists of a 2.1 x 1.5 x 0.3 cm aggregate of solis-white to pink irregular rubbery soft tissue fragments. Smoke Chaser sections, one cassette. Signed by and Reported on: Mayda Moody MD 09/05/18 1021 END OF REPORT DEPARTMENT OF PATHOLOGY, [address] [place] [id number] Gordon Vega M.D. Director [facility] # [id number] Procedures Date Code Description Status 09/03/2018 80632 Arthroscopy Shoulder,W/Rotator Cuff Repair Completed 09/03/2018 80990 Arthroscopy Shoulder,W/Rotator Cuff Repair Completed 09/03/2018 77004 Arthroscopy,Shoulder Decompression Of Subacromial Space Completed W/Acromio 09/03/2018 48905 Arthroscopy,Shoulder Decompression Of Subacromial Space Completed W/Acromio 09/03/2018 88691 Arthroscopy Shoulder Debridement Extensive Completed 09/03/2018 20546 Arthroscopy Shoulder Debridement Extensive Completed 09/03/2018 57972 Tenodesis Biceps Long Tendon Completed 09/03/2018 59632 Tenodesis Biceps Long Tendon Completed Encounters Type Date Location Provider Dx Diagnosis Office Visit 08/17/2018 Orthopedic Henny Saba MD S46.011A Strain of 8:[facility]/tend the rotator cuff of right shoulder, init W00.9xxA Unspecified fall due to ice and snow, initial encounter Office Visit 08/08/2018 11:30a Orthopedic Blayne Blake M75.121 [facility] MD rotatr-cuff AT [place] tear/ruptr of r shoulder, not trauma Office Visit 08/03/2018 10:15a Orthopedic Blayne Blake S49.81xA Oth injuries of [facility] MD right shoulder AT [place] and upper arm, init encntr M25.311 Other instability, right shoulder Plan of Treatment Future Appointment(s):11/27/2018 1:15 pm - Henny Saba MD at [facility]10/16/2018 - Henny Saba MDS46.011D Strain of muscle(s) and tendon(s) of the rotator cuff of rigFollow up:Follow up: 6 weeks
[2018-10-27 16:07] VITALS: BP 129/79
[2018-10-27] MEDS ORDERED: Fluorescein Sodium TOPICAL* 1 MG TEST STRIP OPHTHALMIC ONE (16:10)
--- NOTE | 2018-10-27 16:19 | UC ---
Eye Complaint HPI - HPI Summary HPI Summary: Last pm, L eye tearing and irritated so he removed his contacts and disposed of them. This am, awoke with L eye RED AND matted shut. denies visual loss and eye pain. HE had a headache earlier but none now. - History of Current Complaint Chief Complaint: UCEye Stated Complaint: LT EYE CONCERN Time Seen by Provider: 10/27/18 15:59 Hx Obtained From: Patient Onset/Duration: Gradual Onset Timing: Constant Pain Intensity: 0 Aggravating Factor(s): Nothing Alleviating Factor(s): Nothing Associated Signs And Symptoms: Negative: Photophobia, Vision Impairment Bilateral, Fever, Swelling - Allergies/Home Medications Allergies/Adverse Reactions: Allergies Allergy/AdvReac Type Severity Reaction Status Date / Time No Known Allergies Allergy Verified 10/27/18 16:08 Home Medications: Home Medications Ibuprofen TAB* [Motrin TAB* 800 MG] 800 mg PO DAILY PRN 10/27/18 [History Confirmed 10/27/18] PMH/Surg Hx/FS Hx/Imm Hx Previously Healthy: Yes - Surgical History Surgical History: Yes Surgery Procedure, Year, and Place: [place] 1985 [id number]/PELVIS,. R rotator cuff-09/03/18. APPENDECTOMY, [facility] - Family History Known Family History: Positive: Hypertension, Diabetes, Other - Oldest brother CAD; AAA Family History: Oldest brother CAD; AAA - Social History Occupation: Employed Full-time Alcohol Use: Occasionally Alcohol Amount: socailly Substance Use Type: None Smoking Status (MU): Former Smoker Type: Cigarettes Amount Used/How Often: 1 PPD for 30 yrs Length of Time of Smoking/Using Tobacco: Since Age 17 Have You Smoked in the Last Year: No When Did the Patient Quit Smoking/Using Tobacco: 06/2016 Household Exposure Type: Cigarettes - Immunization History Most Recent Influenza Vaccination: Not the 2017/2017 Season Most Recent Tetanus Shot: Unk Vaccination Up to Date: Yes Review of Systems All Other Systems Reviewed And Are Negative: Yes Skin: Negative: Rash Eyes: Positive: Drainage, Eye Redness. Negative: Blurred Vision, Diplopia, Photophobia Physical Exam Triage Information Reviewed: Yes Appearance: Well-Appearing Vital Signs: Initial Vital Signs Temp 98.5 F 10/27/18 16:00 Pulse 86 10/27/18 16:00 Resp 18 10/27/18 16:00 BP 129/79 10/27/18 16:00 Pulse Ox 97 10/27/18 16:00 Vital Signs Reviewed: Yes Eyes: Positive: Other: - visual acuity OD 20/20, OS 20/15, OU 20/15. no auricular adenopathy. no periorbital edema or rash. PERRL, EOMI. L lids everted and no FB's. Conjunctiva R clear and L is injected with some crusting. AC's clear. Globes non tender and not firm to gentle pressure. L eye stained and no uptake. ENT: Positive: Pharynx normal, TMs normal. Negative: Nasal congestion, Nasal drainage Neck: Positive: Supple, Nontender, No Lymphadenopathy Respiratory: Positive: No respiratory distress Cardiovascular: Positive: RRR Musculoskeletal: Positive: ROM Intact Neurological: Positive: Alert Psychological: Positive: Age Appropriate Behavior Skin Exam: Normal Skin: Negative: Rashes Eye Complaint Course/Dx - Differential Dx/Diagnosis Differential Diagnosis/HQI/PQRI: Other - no concern for periorbital /orbital cellulitis, glaucoma, abrasions/ulcerations or dendrites. do not feel episcleritis and no FB's. Provider Diagnosis: Conjunctivitis Discharge - Sign-Out/Discharge Documenting (check all that apply): Patient Departure All imaging exams completed and their final reports reviewed: No Studies - Discharge Plan Condition: Stable Disposition: HOME Prescriptions: Tobramycin 0.3% OPHTH.COLLETTE* 1 drop LEFT EYE Q4H 7 Days #1 btl Patient Education Materials: Conjunctivitis (ED) Referrals: Sera Riley [Primary Care Provider] - 5 Days Additional Instructions: no contact use until cleared - Billing Disposition and Condition Condition: STABLE Disposition: Home
== END 2018-10-27 16:26 | disposition home or self-care (01) ==
LOC: UCCORT 15:50
DX: H10.9 Unspecified conjunctivitis (principal); Z87.891 Personal history of nicotine dependence
CPT/HCPCS: 99212; A9270-GY; G0463

== ENCOUNTER 2018-11-24 17:13 | Emergency (ER) | payer BC ==
[2018-11-24 17:28] VITALS: BP 133/76
[2018-11-24] MEDS ORDERED: Sulfamethox/Trimethoprim DS 800/160* TAB PO ONE (17:50)
--- NOTE | 2018-11-24 17:54 | UC ---
Skin Complaint HPI - HPI Summary HPI Summary: Boils right axilla onset 11/20/18. Hx of right shoulder surgery 09/03/18; pt returns to see surgeon on 11/27/18 - History of Current Complaint Chief Complaint: UCSkin Time Seen by Provider: 11/24/18 17:27 Stated Complaint: SKIN COMPLAINT Hx Obtained From: Patient Onset/Duration: Sudden Onset, Lasting Days Skin Exposure Onset/Duration: Days Ago Timing: Constant Onset Severity: Mild Current Severity: Moderate Pain Intensity: 3 Location: Discrete Character: Swelling, Redness, Raised, Painful - Allergy/Home Medications Allergies/Adverse Reactions: Allergies Allergy/AdvReac Type Severity Reaction Status Date / Time No Known Allergies Allergy Verified 11/24/18 17:21 PMH/Surg Hx/FS Hx/Imm Hx Previously Healthy: Yes - Surgical History Surgical History: Yes Surgery Procedure, Year, and Place: [place] rods 1984 [id number]/PELVIS,. R rotator cuff-09/03/18. [facility]CTOMY, [facility] - Family History Known Family History: Positive: Hypertension, Diabetes, Other - Oldest brother CAD; AAA Family History: Oldest brother CAD; AAA - Social History Alcohol Use: Occasionally Alcohol Amount: socially Substance Use Type: None Smoking Status (MU): Former Smoker Type: Cigarettes Amount Used/How Often: 1 PPD for 30 yrs Length of Time of Smoking/Using Tobacco: Since Age 17 Have You Smoked in the Last Year: No When Did the Patient Quit Smoking/Using Tobacco: 06/2016 Household Exposure Type: Cigarettes - Immunization History Most Recent Influenza Vaccination: Not the 2016/2017 Season Most Recent Tetanus Shot: Unk Vaccination Up to Date: Yes Review of Systems All Other Systems Reviewed And Are Negative: Yes Skin: Positive: Other - abscess Is Patient Immunocompromised?: No Physical Exam Triage Information Reviewed: Yes Appearance: Well-Appearing, Pain Distress, Obese Vital Signs: Initial Vital Signs Temp 98.5 F 11/24/18 17:23 Pulse 93 11/24/18 17:23 Resp 16 11/24/18 17:23 BP 133/76 11/24/18 17:23 Pulse Ox 96 11/24/18 17:23 Vital Signs Reviewed: Yes Eye Exam: Normal ENT Exam: Normal Dental Exam: Normal Neck exam: Normal Respiratory Exam: Normal Cardiovascular Exam: Normal Abdominal Exam: Normal Bowel Sounds: Positive: Present Musculoskeletal Exam: Normal Neurological Exam: Normal Psychological Exam: Normal Skin: Positive: Other - multiple small boils, possibly started with ingrown hair Course/Dx - Course Course Of Treatment: hx obtained, exam performed ,meds reviewed, treated for infection - Differential Diagnoses - Skin Complaint Differential Diagnoses: Abscess - Diagnoses Provider Diagnosis: Abscess of right axilla Discharge - Sign-Out/Discharge Documenting (check all that apply): Patient Departure All imaging exams completed and their final reports reviewed: No Studies - Discharge Plan Condition: Stable Disposition: HOME Prescriptions: Sulfamethox/Trimethoprim DS* [Bactrim DS 800/160 TAB*] 1 tab PO BID #13 tab Patient Education Materials: Abscess (ED) Referrals: Sera Riley [Primary Care Provider] - Additional Instructions: 1. warm compresses under the arem a few times a day 2. Take the antibiotic as prescribed. 3. Follow up if not improving - Billing Disposition and Condition Condition: STABLE Disposition: Home
== END 2018-11-24 18:04 | disposition home or self-care (01) ==
LOC: UCCORT 17:13
DX: L02.411 Cutaneous abscess of right axilla (principal); Z98.890 Other specified postprocedural states; Z87.891 Personal history of nicotine dependence
CPT/HCPCS: 99212; A9270-GY; G0463